=== PATIENT | male | born 1970 | race Caucasian/White ===

== ENCOUNTER 2016-09-21 12:57 | Emergency (ER) | payer BC ==
[2016-09-21 13:05] VITALS: BP 107/74; PULSE 97; TEMP 98.4; BMI 33.0
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
== END 2016-09-21 15:50 | disposition home or self-care (01) ==
LOC: FER 12:57
DX: S20.212A Contusion of left front wall of thorax, initial encounter (principal); W17.89XA Other fall from one level to another, initial encounter; Y93.9 Activity, unspecified; Y92.410 Unspecified street and highway as the place of occurrence of the external cause
CPT/HCPCS: 71101-TC; 99281-25

== ENCOUNTER 2018-04-27 20:02 | Emergency (ER) | payer BC ==
[2018-04-27] MEDS ORDERED: FLUORESCEIN NA 1 EA STRIP ONE (20:12)
[2018-04-27] MEDS ORDERED: TETRACAINE 0.5% OPHTH SOLN 2 ML BOTTLE ONE (20:12)
[2018-04-27 20:47] VITALS: BP 120/79; PULSE 72; TEMP 98.3; BMI 30.1
[2018-04-27] MEDS ORDERED: CIPROFLOXACIN HCL 0.3% OPHTH 2.5ML BOTTLE ONE (21:29)
--- NOTE | 2018-04-27 21:33 | PDOC ---
History of Present Illness - History of Present Illness Initial Comments: Patient is a 48 year old male with no significant PMHx who presents to the ED for right eye irritation. Patient states that around 2pm he was blowing leaves when he got something in his eye. He is now complaining of itchy/scratchy feeling in his eye. He states that it feels like something is in there He also has a slight headache he attributes from squinting so much. Denies any unusual discharge from affected eye. Denies any changes in vision. Allergies: NKDA <Kira Juárez - Last Filed: 04/27/18 22:07> <Chrissy Patel - Last Filed: 04/28/18 02:57> - General Chief Complaint: Eye Problem Stated Complaint: RT EYE REDNESS Time Seen by Provider: 04/27/18 20:14 Past History <Kira Juárez - Last Filed: 04/27/18 22:07> - Suicide/Smoking/Psychosocial Hx Smoking History: Never smoked Hx Alcohol Use: No Drug/Substance Use Hx: No Substance Use Type: None <Chrissy Patel - Last Filed: 04/28/18 02:57> - Past Medical History Allergies/Adverse Reactions: Allergies Allergy/AdvReac Type Severity Reaction Status Date / Time No Known Allergies Allergy Verified 09/21/16 13:10 Home Medications: Ambulatory Orders NK [No Known Home Medication] 04/27/18 Review of Systems - Review of Systems Comments:: GENERAL/CONSTITUTIONAL: No fever or chills. No weakness. HEAD, EYES, EARS, NOSE AND THROAT: +right eye irritation. No change in vision. No ear pain or discharge. No sore throat. CARDIOVASCULAR: No chest pain or shortness of breath. RESPIRATORY: No cough, wheezing, or hemoptysis. GASTROINTESTINAL: No nausea, vomiting, diarrhea or constipation. GENITOURINARY: No dysuria, frequency, or change in urination. MUSCULOSKELETAL: No joint or muscle swelling or pain. No neck or back pain. SKIN: No rash NEUROLOGIC: No headache, vertigo, loss of consciousness, or change in strength/ sensation. ENDOCRINE: No increased thirst. No abnormal weight change. HEMATOLOGIC/LYMPHATIC: No anemia, easy bleeding, or history of blood clots. ALLERGIC/IMMUNOLOGIC: No hives or skin allergy. <Kira Juárez - Last Filed: 04/27/18 22:07> *Physical Exam - Vital Signs Last Vital Signs Temp Pulse Resp BP Pulse Ox 98.3 F 72 16 120/79 98 04/27/18 20:07 04/27/18 20:07 04/27/18 20:07 04/27/18 20:07 04/27/18 20:07 - Physical Exam Comments: GENERAL: Awake, alert, and fully oriented, in no acute distress HEAD: No signs of trauma EYES: PERRLA, EOMI, Right eye --> moderate conjunctival erythema, no obvious conjunctival or corneal foreign bodies.anterior chamber normal, extraocular movements intact, no purulent discharge present on eyelid margins. ENT: Auricles normal inspection, hearing grossly normal, nares patent, oropharynx clear without exudates. Moist mucosa NECK: Normal ROM, supple, no lymphadenopathy, JVD, or masses LUNGS: Breath sounds equal, clear to auscultation bilaterally. No wheezes, and no crackles HEART: Regular rate and rhythm, normal S1 and S2, no murmurs, rubs or gallops ABDOMEN: Soft, nontender, normoactive bowel sounds. No guarding, no rebound. No masses EXTREMITIES: Normal range of motion, no edema. No clubbing or cyanosis. No cords, erythema, or tenderness NEUROLOGICAL: Cranial nerves II through XII grossly intact. Normal speech, normal gait SKIN: Warm, Dry, normal turgor, no rashes or lesions noted. <Kira Juárez - Last Filed: 04/27/18 22:07> - Vital Signs Last Vital Signs Temp Pulse Resp BP Pulse Ox 98.3 F 72 16 120/79 98 04/27/18 20:07 04/27/18 20:07 04/27/18 20:07 04/27/18 20:07 04/27/18 20:07 <Chrissy Patel - Last Filed: 04/28/18 02:57> Medical Decision Making - Medical Decision Making Documentation has been prepared under my direction and personally reviewed by me in its entirety. I attest that this documented accurately reflects all work, treatment, procedures and medical decision making performed by me. As noted above, this 48-year-old man without previous history of ophthalmologic problems presents with several hour history of right eye discomfort. This began while patient was blowing leaves's afternoon. He had sudden onset of feeling foreign body in right eye. Since then, he has had tearing and persistent discomfort. No history of significant vision changes. No previous history of corneal abrasion. Exam as noted. Using sterile technique, 2 drops of 0.1% tetracaine ophthalmologic solution placed in the patient's right eye. Fluoroscein staining then performed using dye embedded strip. Wood's light revealed approximately 2 mm horizontal abrasion at the base of the cornea. No other uptake of dye seen. Clinical presentation most consistent with small corneal abrasion of the right eye. 2 drops of ciprofloxacin ophthalmic solution placed in the right eye; the patient will continue this every 4 hours while awake for the next 5 days. He should plan on following up with Dr. Gallardo/ within the next 3-4 days for ophthalmologic exam. Meanwhile, the patient should elevate his headache is much as possible and use ibuprofen/naproxen/acetaminophen as needed for pain. He should return to the ER prior to seeing the car rental sales assistant if he has persistent severe pain or vision changes <Chrissy Patel - Last Filed: 04/28/18 02:57> *DC/Admit/Observation/Transfer - Attestations Scribe Attestion: 04/27/18 22:08 Documentation prepared by Kira Juárez, acting as medical care evaluation specialist for Chrissy Patel MD. <Kira Juárez - Last Filed: 04/27/18 22:07> <Chrissy Patel - Last Filed: 04/28/18 02:57> Diagnosis at time of Disposition: Corneal abrasion, right Qualifiers: Encounter type: initial encounter Qualified Code(s): S05.01XA - Injury of conjunctiva and corneal abrasion without foreign body, right eye, initial encounter - Discharge Dispostion Disposition: HOME Condition at time of disposition: Stable - Referrals Referrals: Melchor Gallardo MD [Staff Physician] - - Patient Instructions Printed Discharge Instructions: DI for Corneal Abrasion Additional Instructions: Ciprofloxacin eyedrops: 2 drops in right eye every 4 hours while awake for the next 5 days Keep head elevated at night for the next 2-3 days Cool compresses to right eye as needed Ibuprofen/naproxen/acetaminophen as needed for pain Follow-up with car rental sales assistant (Dr Gallardo/) within the next 3-4 days Return to ER sooner if you have increase pain or discharge
== END 2018-04-27 21:37 | disposition home or self-care (01) ==
LOC: FER 20:02
DX: S05.01XA Injury of conjunctiva and corneal abrasion without foreign body, right eye, initial encounter (principal); X58.XXXA Exposure to other specified factors, initial encounter; Y93.89 Activity, other specified; Y92.89 Other specified places as the place of occurrence of the external cause
CPT/HCPCS: 99281-25

== ENCOUNTER 2022-06-06 17:06 | Emergency (ER) | payer BC ==
[2022-06-06] MEDS ORDERED: ASPIRIN 81 MG CHEWABLE TABLETS PO ONE (17:51)
[2022-06-06] MEDS ORDERED: ASPIRIN COATED 81 MG TABLET.EC ONE (17:54)
[2022-06-06 18:24] LABS: INR 1.12 (0.83-1.09); PROTHROMBIN TIME (PATIENT) 12.9 SEC (9.7-13.0)
[2022-06-06 18:26] LABS: HEMATOCRIT 45.2 % (35.4-49); HEMOGLOBIN 15.5 G/dL (11.7-16.9); MCH 29.2 pg (25.7-33.7); MCHC 34.4 g/dl (32.0-35.9); MEAN CELL VOLUME 85.1 fl (80-96); PLATELET COUNT 239.9 10^3/uL (134-434); RBC 5.31 10^6/uL (4.00-5.60); WHITE BLOOD COUNT 11.4 10^3/uL (4.0-10.8)
[2022-06-06 18:31] LABS: ALBUMIN 4.3 g/dl (3.4-5.0); BILIRUBIN,TOTAL 1.2 mg/dl (0.2-1); CALCIUM 8.9 mg/dl (8.5-10); CREATININE 1.1 mg/dl (0.55-1.3); TOT PROT 7.3 g/dl (6.4-8.2)
[2022-06-06 21:37] VITALS: BMI 37.3
[2022-06-06 21:52] LABS: PLATELET ESTIMATE ADEQUATE
[2022-06-07 08:31] LABS: CALCIUM 8.8 mg/dl (8.5-10); CREATININE 0.9 mg/dl (0.55-1.3)
[2022-06-07] MEDS ORDERED: ASPIRIN 81 MG CHEWABLE TABLETS PO SCH (10:00)
[2022-06-07 10:45] LABS: HEMATOCRIT 44.3 % (35.4-49); HEMOGLOBIN 14.8 GM/dL (11.7-16.9); MCH 28.6 pg (25.7-33.7); MCHC 33.3 g/dl (32.0-35.9); MEAN CELL VOLUME 85.9 fl (80-96); MEAN PLT VOLUME 9.2 fl (7.5-11.1); PLATELET COUNT 235 10^3/uL (134-434); RBC 5.16 M/mm3 (4.00-5.60); RDW 12.8 % (11.9-15.9); WHITE BLOOD COUNT 8.1 K/mm3 (4.0-10.0)
[2022-06-07 12:13] VITALS: RESP 18
[2022-06-07 14:17] VITALS: BP 116/65; PULSE 91; TEMP 98.6
[2022-06-07] MEDS ORDERED: APIXABAN 5 MG TABLET PO ONE (15:56)
== END 2022-06-07 17:00 | disposition home or self-care (01) ==
LOC: FER 17:06 → FM/S 20:25
PROVIDERS: ADMIT Internal Medicine; ATTEND Internal Medicine
DX: R07.9 Chest pain, unspecified (principal)
CPT/HCPCS: 36415; 71045-TC-FY; 71275-TC; 80048; 80053; 80061; 83735; 84484; 85025; 85027; 85379; 85610; 93005; 99285-25; C9803-CS; G0378; Q9967; U0003; U0005

== ENCOUNTER 2025-04-13 11:52 | Emergency (ER) | payer BC ==
[2025-04-13 12:37] LABS: ABSOLUTE IMMATURE GRANULOCYTES 0.02 x10^3/uL (0.0-0.031); BASOPHILS # 0.05 x10^3/uL (0.01-0.08); EOSINOPHIL % 3.2 % (0.8-7.0); EOSINOPHILS # 0.31 x10^3/uL (0.04-0.54); MCHC 33.9 g/dl (32.3-36.5); MEAN CELL VOLUME 85.6 fl (79.0-92.2); MEAN PLT VOLUME 11.1 fl (9.4-12.4); MONOCYTE # 0.67 x10^3/uL (0.30-0.82); MONOCYTE % 6.9 % (5.3-12.2); RDW 12.3 % (12.2-16.1)
[2025-04-13 12:48] LABS: ALK PHOS 58 U/L (45-117); CO2 25 mmol/L (21-32); CREATININE 1.0 mg/dl (0.6-1.3); GLUCOSE,RANDOM 171 mg/dl (74-106); SGOT/AST 25 U/L (15-37); SGPT/ALT 22 U/L (7-52); TOT PROT 7.0 g/dl (6.4-8.2)
[2025-04-13 13:26] VITALS: BP 140/94; PULSE 74; RESP 18; TEMP 98.6; BMI 32.3
[2025-04-13 17:30] LABS: HCV DIAGNOSTIC IN-HOUSE W/RFLX NON-REACTIVE (NONREACTIVE); HIV INTERPRETATION NEGATIVE (NEGATIVE)
== END 2025-04-13 14:05 | disposition home or self-care (01) ==
LOC: FER 11:52
DX: R07.89 Other chest pain (principal); R11.2 Nausea with vomiting, unspecified
CPT/HCPCS: 36415; 71275-TC; 80053; 84484; 85025; 86803; 87389; 93005; 99285-25; Q9967